=== PATIENT | male | born 1950 | race Caucasian/White ===

== ENCOUNTER 2017-06-13 08:00 | Outpatient (CLI) | payer MEDICARE, OTHER | END 2017-06-13 23:59 | disposition home or self-care (01) | LOC: LAB.R 08:00 | PROVIDERS: ATTEND Surgery | DX: R19.5 Other fecal abnormalities (principal) | CPT/HCPCS: 82270 ==

== ENCOUNTER 2017-06-28 06:52 | Day surgery (SDC) | payer MEDICARE, OTHER ==
[2017-06-28] MEDS ORDERED: LACTATED RINGERS 1,000 ML IV ONE ×2 (07:27)
[2017-06-28] MEDS ORDERED: PROPOFOL 200 MG/20 ML VIAL IVP ONE (08:40)
[2017-06-28] MEDS ORDERED: GLYCOPYRROLATE 1 MG/5 ML VIAL IVP ONE (08:40)
[2017-06-28] MEDS ORDERED: SODIUM CHLORIDE 0.9% 10 ML VIAL IV ONE (08:40)
[2017-06-28] MEDS ORDERED: MIDAZOLAM 2 MG/2 ML VIAL IVP ONE (08:40)
[2017-06-28] MEDS ORDERED: KETAMINE 500 MG/10 ML VIAL IVP ONE (08:40)
[2017-06-28 09:31] VITALS: BP 99/78
== END 2017-06-28 06:53 | disposition home or self-care (01) ==
LOC: SDS 06:52
PROVIDERS: ATTEND Surgery
PROC: 0DBE8ZX Excision of Large Intestine, Via Natural or Artificial Opening Endoscopic, Diagnostic (ICD-10-PCS; principal; 2017-06-28 08:15)
DX: D12.2 Benign neoplasm of ascending colon (principal); D12.3 Benign neoplasm of transverse colon; K62.1 Rectal polyp; E11.9 Type 2 diabetes mellitus without complications; G47.30 Sleep apnea, unspecified
CPT/HCPCS: 45384; J7120

== ENCOUNTER 2018-11-11 08:00 | Outpatient (CLI) | payer MEDICARE, OTHER ==
[2018-11-11 12:32] LABS: ALBUMIN 4.3 g/dL (3.2-5.5); ALBUMIN/GLOBULIN RATIO 1.3 (1.0-2.2); ALKALINE PHOSPHATASE 47 IU/L (42-121); ALT ALANINE AMINOTRANSFERASE 20 IU/L (10-60); AST ASPARTATE AMINOTRANSFERASE 26 IU/L (10-42); BILIRUBIN,TOTAL 1.3 mg/dL (0.2-1.0); BUN - BLOOD UREA NITROGEN 20 mg/dL (6-20); CALCIUM 9.5 mg/dL (8.5-10.3); CARBON DIOXIDE - CO2 26 mmol/L (21-32); CHLORIDE 101 mmol/L (101-111); CHOLESTEROL 176 mg/dL; GFR - MDRD 74 (>89); GLUCOSE 136 mg/dL (70-100); HDL CHOLESTEROL 53 mg/dL; SODIUM 137 mmol/L (135-145); TOTAL PROTEIN 7.5 g/dL (6.7-8.2)
[2018-11-11 12:33] LABS: CHOL/HDL RATIO 3.3 (<5.0)
[2018-11-11 12:40] LABS: BASOPHILS # (AUTO) 0.1 10^3/uL (0.0-0.1); BASOPHILS % (AUTO) 0.9 %; EOSINOPHILS # (AUTO) 0.5 10^3/uL (0.0-0.7); EOSINOPHILS % (AUTO) 9.2 %; LYMPHOCYTES # (AUTO) 1.1 10^3/uL (1.5-3.5); LYMPHOCYTES % (AUTO) 18.6 %; MEAN CORPUSCULAR HEMOGLOBIN 29.4 pg (27.0-31.0); MEAN CORPUSCULAR HGB CONC 33.1 g/dL (32.0-36.0); MEAN CORPUSCULAR VOLUME 88.9 fL (80.0-94.0); MEAN PLATELET VOLUME 8.2 fL (7.4-11.4); MONOCYTES # (AUTO) 0.5 10^3/uL (0.0-1.0); MONOCYTES % (AUTO) 8.1 %; NEUTROPHILS # (AUTO) 3.7 10^3/uL (1.5-6.6); NEUTROPHILS % (AUTO) 63.2 %; PLT - PLATELET COUNT 208 10^3/uL (130-450); RED BLOOD COUNT 5.43 10^6/uL (4.70-6.10); RED CELL DISTRIBUTION WIDTH 14.3 % (12.0-15.0); WHITE BLOOD COUNT 5.8 x10^3/uL (4.8-10.8)
[2018-11-11 12:49] LABS: HB2 TOTAL 17.8 g/dL; HEMOGLOBIN A1C 0.88 g/dL; HEMOGLOBIN A1C % 6.7 % (4.6-6.2)
[2018-11-11 12:56] LABS: LDL CHOLESTEROL,DIRECT 117 mg/dL; LDLD/HDL RATIO 2.2 (<3.6)
== END 2018-11-11 08:01 | disposition home or self-care (01) ==
LOC: LAB.WCP 08:00
PROVIDERS: ATTEND Family Medicine
DX: E11.9 Type 2 diabetes mellitus without complications (principal); I10 Essential (primary) hypertension; N40.0 Benign prostatic hyperplasia without lower urinary tract symptoms; N52.9 Male erectile dysfunction, unspecified
CPT/HCPCS: 36415; 80053; 80061; 82043; 83036; 83721; 84443; 85025

== ENCOUNTER 2018-11-17 11:02 | Outpatient (CLI) | payer MEDICARE, OTHER | END 2018-11-17 11:03 | disposition home or self-care (01) | LOC: LAB.WCP 11:02 | PROVIDERS: ATTEND Family Medicine | DX: Z12.5 Encounter for screening for malignant neoplasm of prostate (principal) | CPT/HCPCS: 36415; G0103; 84153 ==

== ENCOUNTER 2019-04-14 10:16 | Outpatient (CLI) | payer MEDICARE, OTHER ==
[2019-04-14 11:20] VITALS: BP 147/88
--- NOTE | 2019-04-14 11:20 | SLEEP CARE CONSULTATION ---
Information from patient questionnaire entered by Radha Hernandez. I have reviewed and concur with the information entered by Radha Hernandez. This document represents the service I personally performed and the decisions made by me, Fareed Murray MD, [facility]. History of Present Illness Reason for Visit: New patient Duration of Symptoms: 30 years Usual bedtime: 2100 Time it takes to fall asleep: 20 minutes Snores at night: No (not when using CPAP) Observed to quit breathing while asleep: Yes Sleeps alone due to snoring: No Toss, Turn, or Twitch while sleeping: Yes Recalls having dreams: Yes Usually gets out of bed at: [id number] Ever fallen asleep while driving: No Takes day naps: Yes Dreams during day naps: No Prior sleep studies: Yes (20 years ago) Additional HPI information: I had the pleasure of seeing Mr. Baig today regarding obstructive sleep apnea-hypopnea. As you know, he is a 69 year old gentleman who was diagnosed with the sleep-disordered breathing in [place] about 20 years ago. The report is not available. He is on his third machine and it set at 10 cmH2O. The device is a ResMed S9 AutoSet. He uses every night and all night. The compliance data show usage in 180 out of the past 180 nights, averaging 8 hours a night. The residual AHI is 6.9 and average air leak is 9.2 L/minute. He wears a nasal mask. He got his supplies from [employer]. He has not received any supplies the past few years. He finds the treatment very beneficial. Subjective Initial [place] Sleepiness Scale score: 8 Past Medical History Past Medical History: reports: Diabetes, Other (hyperthyroidism myopathy) Social History The patient's occupation is retired. Patient is and lives in [place]. Have you smoked in the past 12 months: No Alcohol use: No Caffeine use: Yes Caffeine amount and frequency: coca cola Family History Family history of sleep disordered breathing: Yes Family Hx Sleep Apnea: Sibling: Snoring Allergies and Home Medications Drug allergies reviewed: Yes Home medication list reviewed: Yes Review of Systems Cardiovascular: denies: high blood pressure, palpitations, chest pain, irregular heart rate or pulse, leg or foot swelling, have to sleep sitting up, other Respiratory: reports: shortness of breath Gastrointestinal: denies: heartburn, difficulty swallowing, nausea, vomitting, diarrhea, abdominal pain, other Urinary: reports: frequency Neurological: denies: headaches, seizure, head trauma, disorientation, speech dysfunction, gait or balance problems, fainting or unconsciousness, other Psychiatric: denies: Attention Deficit Hyperactivity, anxiety, depression, mood disorder, claustrophobia, other Ear/Nose/Throat: denies: nasal congestion, sinus problems, nose bleeds, dry mouth/throat, hoarseness, injury to nose, tonsillectomy, wisdom teeth removed, other Endocrine: reports: thyroid disease Musculoskeletal: denies: joint pain, neck pain, back pain, joint swelling, muscle pain or cramping, mobility problems, other Immunologic: denies: sneezing, rash, itching, allergies to food or environment, other Physical Exam Vital signs obtained and entered by: Dr. Murray Blood Pressure: 147/88 Heart Rate: 81 O2 Saturation: 97 Height: 5 ft 6 in Weight: 230 lb Body Mass Index: 37.1 BMI Classification: Obesity Class 2 Neck circumference: 18 Mood/affect: normal HEENT: No craniofacial malformation Nostrils: patent to airflow Turbinates: normal Septum: midline Mouth and throat: narrow oropharynx Soft palate: long Hard palate: normal Uvula: normal Uvula visualization: 50% Mallampati Class II Tongue: normal in size Tonsils: absent bilaterally Chin and jaw: normal size and position Neck: normal w/o lymphadenopathy or thyromegaly Heart: regular rate and rhythm Lungs: clear bilaterally Abdomen: soft Extremities: no edema or clubbing Neurologic: intact Impression and Plan IMPRESSION: 1. Obstructive Sleep Apnea-Hypopnea Syndrome, of unknown severity, as previously diagnosed. The patient has had good treatment compliance. The current pressure setting appears slightly ineffective but comfortable. The patient experiences improvement on the treatment. Narrow oropharynx and obesity are common predisposing factors for obstructive sleep apnea-hypopnea syndrome. Pathophysiology of sleep-disordered breathing was discussed. Because the CPAP is now older than the useful life of 5 years, I will order the patient a new one. However, in order for Medicare to cover the treatment, we will need to document the sleep-disordered breathing by repeating the in-laboratory polysomnography. A manual CPAP/BiPAP titration study will also be performed to find a more effective pressure setting. Plan: 1. Schedule polysomnography + manual CPAP titration study. 2. Attempt to lose weight. 3. Return for follow up after the sleep studies. I will order him all new equipment at that time. I spent 100% of this 20-minute visit face to face with the patient with greater than 50% of this was spent time counseling the patient and coordination of care.
== END 2019-04-14 10:17 | disposition home or self-care (01) ==
LOC: SC 10:16
PROVIDERS: ATTEND Internal Medicine Pulmonary Disease
DX: G47.33 Obstructive sleep apnea (adult) (pediatric) (principal); E66.9 Obesity, unspecified; Z68.37 Body mass index [BMI] 37.0-37.9, adult
CPT/HCPCS: 99203; G0463; 99212

== ENCOUNTER 2019-04-17 07:45 | Outpatient (CLI) | payer MEDICARE, OTHER ==
[2019-04-17 11:55] LABS: BASOPHILS % (AUTO) 0.4 %; EOSINOPHILS # (AUTO) 0.2 10^3/uL (0.0-0.7); EOSINOPHILS % (AUTO) 1.9 %; HGB - HEMOGLOBIN 16.1 g/dL (14.0-18.0); LYMPHOCYTES # (AUTO) 1.1 10^3/uL (1.5-3.5); LYMPHOCYTES % (AUTO) 14.5 %; MEAN CORPUSCULAR HGB CONC 32.5 g/dL (32.0-36.0); MEAN CORPUSCULAR VOLUME 89.2 fL (80.0-94.0); MEAN PLATELET VOLUME 10.2 fL (7.4-11.4); MONOCYTES # (AUTO) 0.5 10^3/uL (0.0-1.0); MONOCYTES % (AUTO) 6.5 %; NEUTROPHILS % (AUTO) 76.3 %; PLT - PLATELET COUNT 240 10^3/uL (130-450); RED BLOOD COUNT 5.56 10^6/uL (4.70-6.10); RED CELL DISTRIBUTION WIDTH 13.5 % (12.0-15.0); WHITE BLOOD COUNT 7.9 x10^3/uL (4.8-10.8)
[2019-04-17 12:02] LABS: ALBUMIN 4.5 g/dL (3.2-5.5); ALBUMIN/GLOBULIN RATIO 1.3 (1.0-2.2); BILIRUBIN,TOTAL 1.3 mg/dL (0.2-1.0); CALCIUM 9.8 mg/dL (8.5-10.3); CREATININE 1.2 mg/dL (0.6-1.2); TOTAL PROTEIN 7.9 g/dL (6.7-8.2)
== END 2019-04-17 23:59 | disposition home or self-care (01) ==
LOC: LAB.WCP 07:45
PROVIDERS: ATTEND Family Medicine
DX: R41.82 Altered mental status, unspecified (principal)
CPT/HCPCS: 36415; 80053; 82607; 83921; 84443; 85025

== ENCOUNTER 2019-05-03 19:23 | Outpatient (CLI) | payer MEDICARE, OTHER | END 2019-05-03 19:24 | disposition home or self-care (01) | LOC: SC 19:23 | PROVIDERS: ATTEND Internal Medicine Pulmonary Disease | DX: G47.33 Obstructive sleep apnea (adult) (pediatric) (principal); G47.61 Periodic limb movement disorder | CPT/HCPCS: 95810 ==

== ENCOUNTER 2019-05-27 14:36 | Outpatient (CLI) | payer MEDICARE, OTHER ==
[2019-05-27 15:46] VITALS: BP 132/68
--- NOTE | 2019-05-27 15:46 | SLEEP CARE CONSULTATION ---
Information from patient questionnaire entered by Acacia Elam. I have reviewed and concur with the information entered by Acacia Elam. This document represents the service I personally performed and the decisions made by me, Reyna Macario RN, MSN, HYDROELECTRIC POWERPLANT SUPERVISOR. History of Present Illness Initial [place] Sleepiness Scale score: 8 Current [place] Sleepiness Scale score: 4 Additional HPI information: PETER FRIEDMAN returns for follow up of the recently performed polysomnography and informed of findings . I explained the pathophysiology behind obstructive sleep apnea. We then spent quite a bit of time discussing different treatment options. For mild obstru ctive sleep apnea, surgery and oral appliance are alternatives to nasal CPAP therapy but in moderate or severe cases, nasal CPAP is the most effective and reliable treatment. I reviewed the impact of weight changes on sleep apnea and strongly recommended losing weight as his BMI is 35.6, class 2 obesity. After some discussion, the patient opted to continue with the nasal CPAP therapy. Nasal autoCPAP set at [id number] will be ordered with rationale explained as his current pressure of [id number] has elevated residual AHI of 6.9 at last compliance reading on his consultation. I explained how CPAP machine works with sample devices Respir[employer] Dreamstation and ResAuramist [id number] and what to expect when using the machine. Using CPAP every night in order to get used to it was emphasized. Patient advised to put CPAP mask on before getting into bed so as not to fall asleep without CPAP. The patient was instructed to call the CPAP supplier to discuss any mechanical problem that may occur. If the mask given is uncomfortable or is difficult to keep on through the night even with adjustment, contact the CPAP supplier as many will replace with another mask style if notified before 30 days. If snoring or perceives is not getting enough air or too much air from the machine, notify this office. He would like to measure and will call with choice of CPAP. He likes the Dreamstation ramp feature only if needed aspect but likes the hose placement on the Res Med device. Patient counseled not drink alcohol less than 4 hours before bedtime as it can increase snoring and apnea. Patient does not drink alcohol. Patient was cautioned about risks of drowsy driving until sleepiness symptoms resolve. Patient denies drowsy driving. Sleep Study - Polysomnography Polysomnography findings: The quality of the study is good. The patient had normal sleep efficiency. The sleep architecture was abnormal for sleep fragmentation and reduced amount of time spent in REM and slow wave sleep (N3).. Respiratory monitoring showed moderate obstructive sleep apnea-hypopnea (AHI = 16.4) associated with frequent arousals, oxyhemoglobin desaturation and mild hypoxia (timi oxygen saturation of 83%). The respiratory events occurred slightly more frequently during supine sleep (supine AHI = 23.6; non- supine = 15.04). Snore was moderate in intensity. There was moderate periodic leg movement of sleep contributing to the sleep fragmentation. Cardiac rhythm was normal sinus rhythm without significant arrhythmia. No abnormal behavior (parasomnia) observed during the night. Allergies and Home Medications Known drug allergies: Yes (codiene) Home medication list reviewed: Yes (no changes) Allergy and home medication list: metformin 500mg levothyroxine 125mcg tamsulosin 0.4mg Review of Systems Review of systems same as previous: Yes Physical Exam Blood Pressure: 132/68 Cuff size: long Heart Rate: 88 O2 Saturation: 96 Height: 5 ft 6.5 in Weight: 224 lb Body Mass Index: 35.6 BMI Classification: Obesity Class 2 Impression and Plan 1. Obstructive Sleep Apnea-Hypopnea Syndrome, moderatea, with lowest oxygen saturation of 83%. As noted above, the patient has been using CPAP for the past 20 years but no sleep study available to continue getting equipment and so was completed for insurance coverage. His CPAP is over 5 years old and of reasonable use and so will be updated. Positive pressure therapy could benefit his diabetes. I will update his CPAP and adjust pressure to [id number] to reduce elevated residual AHI noted on last compliance. Compliance guidelines also reviewed. A copy of compliance guidelines will be given for reference at check out. Because the apnea is more severe supine, I instructed to avoid sleeping supine using pillow positioning if unable to use CPAP. 2. Periodic limb movement, moderate, that did fragment patients sleep. However, it does not bother him or his spouse at home except if he has been doing extra exercise such as ladder work about once a month. Periodic limb movement of sleep (PLMS) is characterized by episodes of repetitive limb movements that occur during sleep and usually involve the lower limbs. The etiology is unknown but can be associated with restless leg syndrome (RLS), neuropathy, spinal cord diseases, kidney disease, rheumatological d isorders, narcolepsy, obstructive sleep apnea, and REM sleep behavior disorder. Other factors that can increase PLMS and/or RLS are heredity and iron deficiency as reflected by a low serum ferritin level below 50 to 75mcg / L. Several medications can precipitate or aggravate PLMS such as selective serotonin re- uptake inhibitor antidepressants, tricyclic antidepressants, lithium, and dopamine receptor antagonists with the exception of bupropion. Caffeine can also aggravate PLMS and should be avoided. Sleep hygiene methods can also improve sleep as well as lifestyle changes such as regular exercise. Patient was advised that no treatment is needed at this time. If symptoms increase, then further evaluation is indicated. * Update CPAP and set at auto CPAP therapy, pressure at 11-14 cm H2O. * Attempt to lose weight. * Avoid alcohol consumption near bedtime. * Avoid supine sleep if unable to use CPAP. * Return 6 weeks after CPAP obtained. I will assess response to therapy and compliance at that time. Addendum; patient later called and would like to try the Resmed CPAP. I spent 100% of this 35 minute visit face to face with the patient with greater than 50% of this was spent time counseling the patient and coordination of care.
== END 2019-05-27 14:37 | disposition home or self-care (01) ==
LOC: SC 14:36
PROVIDERS: ATTEND Nurse Practitioner Family
DX: G47.33 Obstructive sleep apnea (adult) (pediatric) (principal); G47.61 Periodic limb movement disorder; E66.9 Obesity, unspecified; Z68.35 Body mass index [BMI] 35.0-35.9, adult
CPT/HCPCS: 99214; G0463; 99212

== ENCOUNTER 2019-05-29 10:00 | Outpatient (CLI) | payer MEDICARE, OTHER ==
[2019-05-29 12:50] LABS: BASOPHILS # (AUTO) 0.1 10^3/uL (0.0-0.1); BASOPHILS % (AUTO) 0.3 %; EOSINOPHILS % (AUTO) 0.3 %; HGB - HEMOGLOBIN 14.5 g/dL (14.0-18.0); LYMPHOCYTES # (AUTO) 0.5 10^3/uL (1.5-3.5); LYMPHOCYTES % (AUTO) 3.8 %; MEAN CORPUSCULAR HEMOGLOBIN 29.4 pg (27.0-31.0); MEAN CORPUSCULAR HGB CONC 32.6 g/dL (32.0-36.0); MEAN CORPUSCULAR VOLUME 90.1 fL (80.0-94.0); MEAN PLATELET VOLUME 10.6 fL (7.4-11.4); MONOCYTES # (AUTO) 1.7 10^3/uL (0.0-1.0); MONOCYTES % (AUTO) 11.6 %; NEUTROPHILS # (AUTO) 11.9 10^3/uL (1.5-6.6); NEUTROPHILS % (AUTO) 82.7 %; PLT - PLATELET COUNT 190 10^3/uL (130-450); RED BLOOD COUNT 4.94 10^6/uL (4.70-6.10); RED CELL DISTRIBUTION WIDTH 13.4 % (12.0-15.0); WHITE BLOOD COUNT 14.4 x10^3/uL (4.8-10.8)
[2019-05-29 13:14] LABS: PLATELET ESTIMATE, MANUAL NORMAL (130-450,000) (NORMAL); PLATELET MORPHOLOGY NORMAL APPEARANCE (NORMAL); RBC MORPHOLOGY (MULTIPLE) NORMAL APPEARANCE (NORMAL)
[2019-05-29 13:21] LABS: ALBUMIN 3.4 g/dL (3.2-5.5); ALBUMIN/GLOBULIN RATIO 0.9 (1.0-2.2); BILIRUBIN,TOTAL 1.1 mg/dL (0.2-1.0); CALCIUM 8.7 mg/dL (8.5-10.3); CREATININE 1.3 mg/dL (0.6-1.2); TOTAL PROTEIN 7.3 g/dL (6.7-8.2)
[2019-05-29 14:02] LABS: HB2 TOTAL 14.7 g/dL; HEMOGLOBIN A1C 0.71 g/dL; HEMOGLOBIN A1C % 6.6 % (4.6-6.2)
== END 2019-05-29 23:59 | disposition home or self-care (01) ==
LOC: LAB.WCP 10:00
PROVIDERS: ATTEND Family Medicine
DX: I10 Essential (primary) hypertension (principal); R68.83 Chills (without fever); E11.9 Type 2 diabetes mellitus without complications; N40.0 Benign prostatic hyperplasia without lower urinary tract symptoms
CPT/HCPCS: 36415; 80053; 83036; 85025; 87077; 87086; 87181

== ENCOUNTER 2019-08-13 08:14 | Outpatient (CLI) | payer MEDICARE, OTHER ==
[2019-08-13 09:03] VITALS: BP 130/80
--- NOTE | 2019-08-13 09:03 | SLEEP CARE CONSULTATION ---
Information from patient questionnaire entered by Acacia Elam. I have reviewed and concur with the information entered by Acacia Elam. This document represents the service I personally performed and the decisions made by me, Reyna Macario, RN, MSN, SENIOR ELECTRONICS ENGINEER. History of Present Illness Previous diagnosis: Moderate, Obstructive Sleep Apnea-Hypopnea Syndrome AHI: 16.4 Reason for follow up: first compliance after device update Equipment type: CPAP Equipment obtained from: [place] Mask style: Nasal (Wisp) Mask brand: Respironics Backup mask available: Yes (old) Last cushion change: 1 month ago HPI additional information: Since updating his CPAP and the increase in CPAP pressure he is sleeping better and more energy during the day. CPAP Compliance Data - Data Reviewed with Patient Average duration of nightly device use: 8.5 Compliance rate %: 100 Current pressure setting (cmH2O): 11-14 Humidity settin Average residual AHI: 4.3 Subjective Patient concerns: denies: aerophagia, mask discomfort, air blowing in eyes, mask leak noise, condensation in mask/hose, nasal congestion, dry mouth, nose, throat, epistaxis Observed to snore while using device: No Current pressure setting perceived as: comfortable On therapy, patient: reports: sleeping better, awakening more refreshed, being more awake and alert during the day, more rested overall. denies: drowsiness while driving Initial [place] Sleepiness Scale score: 8 Current [place] Sleepiness Scale score: 2 Allergies and Home Medications Known drug allergies: Yes (codiene ) Home medication list reviewed: Yes (no changes ) Review of Systems Review of systems same as previous: Yes Physical Exam Blood Pressure: 130/80 Cuff size: long Heart Rate: 69 O2 Saturation: 98 Height: 5 ft 6.5 in Weight: 219 lb Weight change since last visit: lost 5 pounds Body Mass Index: 34.8 BMI Classification: Obesity Class 1 Impression and Plan 1. Obstructive Sleep Apnea-Hypopnea Syndrome, moderate, with good treatment compliance and good apnea control. On CPAP therapy, the patient has better sleep quality and is more rested overall that has improved with new device and pressure. To reduce mask leaks, I discussed proper placement of mask with sample mask. I also advised slightly tightening mask. In addition he is advised to increase frequency of changing his mask cushion to at least monthly and may be twice a month depending on seal as noted on his device. I showed him how to check his mask fit on sample device. I also showed him a CPAP pillow but he states he already sleeps on the side of his pillow. I also showed him how his large mask leaks contribute to a higher residual AHI on his compliance report. Patient has lost weight. Currently patients BMI is 35.6 obesity class. Obesity increases the risk of apnea, CPAP pressure requirements and overall health risks especially cardiovascular and diabetes. Thus patient is advised to lose weight. Weight loss can be done with reducing portion size, refined foods and balancing content with vegetables, fruit and protein. A diet consultation can be helpful in achieving optimal weight loss goals. The BMI chart was reviewed. The patient would like to reduce to 30 pounds bringing their BMI down to 31. Patient encouraged to discuss their weight loss goals with their PCP and consider a referral to a geophysical prospector. He is also increasing his exercise recently with his spouse that should also reduce his weight. Both his weight loss and exercise increase could also benefit his diabetes. The patient's current CPAP pressure should accommodate for some future weight loss. Symptoms to report for additional pressure adjustment discussed. Patient's apnea severity and rationale for treatment to reduce apnea, improve sleep quality and reduce cardiovascular and cerebrovascular events was reviewed. I also reviewed the benefit of consistent device use of CPAP for diabetes. * Continue CPAP pressure at [id number] * Notify me if snoring with mask or feeling that the pressure is too much or too little * Continue to lose weight * consider diet consultation * Change mask cushions more frequently. * Call this office if any problems using CPAP * Return for follow up in 1 year , or sooner if concerns arise Time Spent with Patient (minutes): 30 I spent 100% of this visit face to face with the patient with greater than 50% of this was spent time counseling the patient and coordination of care.
== END 2019-08-13 08:15 | disposition home or self-care (01) ==
LOC: SC 08:14
PROVIDERS: ATTEND Nurse Practitioner Family
DX: G47.33 Obstructive sleep apnea (adult) (pediatric) (principal); E66.9 Obesity, unspecified; Z68.35 Body mass index [BMI] 35.0-35.9, adult
CPT/HCPCS: 99214; G0463; 99212

== ENCOUNTER 2019-08-24 07:22 | Outpatient (CLI) | payer MEDICARE, OTHER ==
[2019-08-24 12:06] LABS: CALCIUM 9.9 mg/dL (8.5-10.3); CREATININE 1.1 mg/dL (0.6-1.2)
[2019-08-24 12:51] LABS: HB2 TOTAL 15.6 g/dL; HEMOGLOBIN A1C 0.74 g/dL; HEMOGLOBIN A1C % 6.5 % (4.6-6.2)
[2019-08-24 13:16] LABS: CREATININE,URINE 65.8 mg/dL; MICROALBUM/CREATININE RATIO,UR 7.6 ug/mg (<30.0); MICROALBUMIN,URINE 0.5 mg/dL (0-300.0)
== END 2019-08-24 23:59 | disposition home or self-care (01) ==
LOC: LAB.WCP 07:22
PROVIDERS: ATTEND Family Medicine
DX: R41.3 Other amnesia (principal); E11.9 Type 2 diabetes mellitus without complications; N41.9 Inflammatory disease of prostate, unspecified
CPT/HCPCS: 36415; 80048; 82043; 82570; 83036

== ENCOUNTER 2020-08-08 11:11 | Outpatient (CLI) | payer MEDICARE, OTHER ==
--- NOTE | 2020-08-08 13:18 | SLEEP CARE CONSULTATION ---
Information from patient questionnaire entered by Acacia Elam. I have reviewed and concur with the information entered by Acacia Elam. This document represents the service I personally performed and the decisions made by me, Fareed Murray MD, [facility]. History of Present Illness Service Date and Time: 08/08/2020 1111 Previous diagnosis: Moderate, Obstructive Sleep Apnea-Hypopnea Syndrome AHI: 16.4 (in 2019) Reason for follow up: annual (last seen 07/2019) Equipment type: CPAP Equipment obtained from: [place] Mask style: Nasal Mask brand: Respironics (Wisp) Prior sleep studies: Yes (20 years ago) Year and Where: 2019 - [facility] Type of Sleep Study: Polysomnography HPI additional information: HPI: Mr. Baig was diagnosed to have moderate obstructive sleep apnea- hypopnea syndrome and returns today for follow up of CPAP therapy. The patient purchased the device from [employer] and was fitted with a nasal mask. He uses the device nightly and all through the night. The compliance report shows that he uses the ResMed AirSense 10 autoCPAP 365 nights out of the past 365 nights, averaging 8.4 hours a night. He complains of no particular problem with the device such as soreness on the face, dry nose, epistaxis, nasal congestion or headache. He thinks that the pressure of 11 - 14 cmH2O is comfortable. On the CPAP therapy he notices improvement in his sleep quality, a nd that he wakes up feeling fresher in the morning and more awake/alert during the day. His notices no snore at all. [place] Sleepiness Scale score is 3. The average residual AHI is 5.2; and average air leak is 7.3 L/minute. The 90th percentile pressure is 13.1 cmH2O. CPAP Compliance Data - Data Reviewed with Patient Average duration of nightly device use: 8 hr 36 min Compliance rate %: 99 (180 days) Current pressure setting (cmH2O): 11-14 Humidity settin Average residual AHI: 6.1 Subjective Initial [place] Sleepiness Scale score: 8 (in 2019) Current [place] Sleepiness Scale score: 3 Allergies and Home Medications Drug allergies reviewed: Yes Home medication list reviewed: Yes Review of Systems Review of systems same as previous: Yes Physical Exam Vital signs obtained and entered by: To minimize the risk of COVID-19 exposure, detailed exam was not performed. Height: 5 ft 6.5 in Weight: 240 lb Weight change since last visit: +10 Body Mass Index: 38.1 BMI Classification: Obese Impression and Plan IMPRESSION: 1. Obstructive Sleep Apnea-Hypopnea Syndrome, moderate (AHI was 16.4 in 2019) with the patient continuing to do well on nasal CPAP therapy. He has excellent compliance and significant clinical benefits. The current pressure appears effective and comfortable. Overall, he is very satisfied with treatment and plans to continue with it long-term. Because the residual AHI is slightly elevated, I will raise the pressure setting. PLAN: 1. AutoCPAP raised to 12 - 16 cm H2O. 2. Try to lose weight 3. Return in one year for follow up or earlier if there is any problem with the treatment. Visit Type: In Office Time Spent with Patient (minutes): 20 Provider Statement: I spent 100% of the Face to Face Visit with the patient with greater than 50% spent counseling the patient and coordination of care.
== END 2020-08-08 11:12 | disposition home or self-care (01) ==
LOC: SC 11:11
PROVIDERS: ATTEND Internal Medicine Pulmonary Disease
DX: G47.33 Obstructive sleep apnea (adult) (pediatric) (principal); E66.9 Obesity, unspecified; Z68.38 Body mass index [BMI] 38.0-38.9, adult
CPT/HCPCS: 99213; G0463; 99212

== ENCOUNTER 2020-08-17 08:00 | Outpatient (CLI) | payer MEDICARE, OTHER ==
[2020-08-17 13:55] LABS: ALBUMIN 4.4 g/dL (3.2-5.5); ALBUMIN/GLOBULIN RATIO 1.5 (1.0-2.2); ALKALINE PHOSPHATASE 53 IU/L (42-121); ALT ALANINE AMINOTRANSFERASE 28 IU/L (10-60); AST ASPARTATE AMINOTRANSFERASE 27 IU/L (10-42); BILIRUBIN,TOTAL 0.9 mg/dL (0.2-1.0); BUN - BLOOD UREA NITROGEN 19 mg/dL (6-20); CALCIUM 10.1 mg/dL (8.5-10.3); CARBON DIOXIDE - CO2 27 mmol/L (21-32); CHLORIDE 101 mmol/L (101-111); CHOL/HDL RATIO 4.2 (<5.0); CHOLESTEROL 216 mg/dL; CREATININE 1.2 mg/dL (0.6-1.2); GLUCOSE 187 mg/dL (70-100); HDL CHOLESTEROL 52 mg/dL; LDL CHOLESTEROL,CALCULATED 141 mg/dL; LDL/HDL RATIO 2.7 (<3.6); TOTAL PROTEIN 7.3 g/dL (6.7-8.2); VLDL CHOLESTEROL 23 mg/dL
[2020-08-17 14:05] LABS: BASOPHILS % (AUTO) 0.4 %; EOSINOPHILS # (AUTO) 0.1 10^3/uL (0.0-0.7); EOSINOPHILS % (AUTO) 1.5 %; HGB - HEMOGLOBIN 16.3 g/dL (14.0-18.0); LYMPHOCYTES # (AUTO) 1.2 10^3/uL (1.5-3.5); LYMPHOCYTES % (AUTO) 12.9 %; MEAN CORPUSCULAR HGB CONC 32.7 g/dL (32.0-36.0); MEAN CORPUSCULAR VOLUME 91.7 fL (80.0-94.0); MEAN PLATELET VOLUME 10.3 fL (7.4-11.4); MONOCYTES # (AUTO) 0.7 10^3/uL (0.0-1.0); NEUTROPHILS # (AUTO) 7.3 10^3/uL (1.5-6.6); NEUTROPHILS % (AUTO) 77.6 %; PLT - PLATELET COUNT 238 10^3/uL (130-450); RED BLOOD COUNT 5.44 10^6/uL (4.70-6.10); RED CELL DISTRIBUTION WIDTH 13.2 % (12.0-15.0); WHITE BLOOD COUNT 9.5 x10^3/uL (4.8-10.8)
[2020-08-17 20:38] LABS: HEMOGLOBIN A1c% 8.6 % (4.27-6.07)
== END 2020-08-17 23:59 ==
LOC: LAB.WCP 08:00
PROVIDERS: ATTEND Family Medicine
DX: E11.9 Type 2 diabetes mellitus without complications (principal); I10 Essential (primary) hypertension; E78.9 Disorder of lipoprotein metabolism, unspecified
CPT/HCPCS: 36415; 80053; 80061; 83036; 83721; 84443; 85025

== ENCOUNTER 2021-02-15 08:05 | Outpatient (CLI) | payer MEDICARE, OTHER ==
[2021-02-15 12:34] LABS: MICROALBUM/CREATININE RATIO,UR 18.1 ug/mg (<30.0)
[2021-02-15 13:26] LABS: BUN - BLOOD UREA NITROGEN 21 mg/dL (6-20); CALCIUM 9.9 mg/dL (8.5-10.3); CARBON DIOXIDE - CO2 26 mmol/L (21-32); CHLORIDE 103 mmol/L (101-111); CHOL/HDL RATIO 2.9 (<5.0); CHOLESTEROL 165 mg/dL; CREATININE 1.2 mg/dL (0.6-1.2); GFR - MDRD 60 (>89); GLUCOSE 128 mg/dL (70-100); HDL CHOLESTEROL 56 mg/dL; LDL CHOLESTEROL,CALCULATED 96 mg/dL; LDL/HDL RATIO 1.7 (<3.6); POTASSIUM 4.9 mmol/L (3.5-5.0); SODIUM 138 mmol/L (135-145); TRIGLYCERIDES 67 mg/dL; VLDL CHOLESTEROL 13 mg/dL
[2021-02-15 14:02] LABS: ESTIMATED AVERAGE GLUCOSE 177 mg/dL (70-100); HEMOGLOBIN A1c% 7.8 % (4.27-6.07)
== END 2021-02-15 23:59 | disposition home or self-care (01) ==
LOC: LAB.WCP 08:05
PROVIDERS: ATTEND Internal Medicine
DX: E11.9 Type 2 diabetes mellitus without complications (principal); N40.1 Benign prostatic hyperplasia with lower urinary tract symptoms
CPT/HCPCS: 36415; 80048; 80061; 82043; 82570; 83036; 83721; 84153

== ENCOUNTER 2021-03-12 12:33 | Emergency (ER) | payer MEDICARE, OTHER ==
[2021-03-12 12:39] VITALS: BP 170/87
[2021-03-12] MEDS ORDERED: BUFFERED LIDOCAINE 10 ML SYRINGE SUBQ STA (12:43)
--- NOTE | 2021-03-12 12:43 | ED Physician Documentation ---
PD HPI HEAD INJURY - Stated complaint Stated Complaint: CHIN LAC - Chief complaint Chief Complaint: Laceration - History obtained from History obtained from: Patient - Additional information Additional information: 70-year-old gentleman who is up-to-date on tetanus was using a grinding wheel at home and it broke and lacerated his face. He has a laceration on the chin and the right cheek. No other injuries. No visual problem or eye pain. Review of Systems Constitutional: reports: Reviewed and negative Eyes: reports: Reviewed and negative Ears: reports: Reviewed and negative PD PAST MEDICAL HISTORY - Past Medical History Cardiovascular: Hypertension, High cholesterol Respiratory: Sleep apnea, CPAP use Endocrine/Autoimmune: Type 2 diabetes, HyPOthyroidism GI: None : None Psych: Claustrophobia Musculoskeletal: None Derm: Rosacea - Past Surgical History Past Surgical History: Yes General: Appendectomy Ortho: Spine surgery HEENT: Detached retina repair - Present Medications Home Medications: Ambulatory Orders Medication Instructions Recorded Confirmed Levothyroxine Sodium [Synthroid] 125 mcg PO DAILY 01/17/13 06/28/17 Metformin HCl [Metformin HCl ER] 500 mg PO QDBREAKFAST 08/08/16 06/28/17 Tadalafil [Cialis] 20 mg PO PRN PRN 08/08/16 06/28/17 metroNIDAZOLE 0.75% GEL [Flagyl 1 gm TOP PRN PRN 06/28/17 06/28/17 Gel] Bacitracin Zinc Oint 1 applic TOP BID #1 gm 03/12/21 - Allergies Allergies/Adverse Reactions: Allergies Allergy/AdvReac Type Severity Reaction Status Date / Time codeine AdvReac Severe confused Verified 03/12/21 12:36 - Social History Does the pt smoke?: No Smoking Status: Never smoker Does the pt drink ETOH?: No Does the pt have substance abuse?: No - Immunizations Immunizations are current?: No - POLST POLST Status: Full Code PD ED PE NORMAL - Vitals Vital signs reviewed: Yes - General General: Alert and oriented X 3, No acute distress - Neuro Neuro: Alert and oriented X 3, Normal speech PD ED PE EXPANDED - HEENT HEENT Visual: 1 - laceration (1.2cm shallow lac) 2 - laceration (3cm deeper lac) Results - Vitals Vitals: Vital Signs - 24 hr 03/12/21 12:36 Temperature 36.5 C Heart Rate 75 Respiratory 16 Rate Blood Pressure 170/87 H O2 Saturation 96 Oxygen O2 Source Room air Procedures - Laceration (location) R cheek Length in cm: 1.2 Wound type: Linear, Superficial Wound preparation: Irrigated copiously NS Skin layer closure: Dermabond Other: Tetanus UTD Chin Length in cm: 3 Wound type: Into subcut fat Anesthesia: Lidocaine 1%, With bicarb Wound preparation: Irrigated copiously NS Skin layer closure: Nylon, Interrupted, Size #-0 - enter number (5-0), Sutures - enter # (8) Other: Tetanus UTD Departure - Departure Disposition: 01 Home, Self Care Clinical Impression: Laceration of multiple sites of face Condition: Good Record reviewed to determine appropriate education?: Yes Instructions: ED Laceration Facial Skin Glue, ED Laceration Facial Sutr Tape Prescriptions: Bacitracin Zinc Oint 1 applic TOP BID #1 gm Comments: For the wound on your cheek which has the glue on it, no special care is needed. You can wash with soap and water and otherwise ignore it. For the wound on the chin with sutures in it. Keep it covered with bacitracin ointment which I am prescribing. Sutures need to come out in about 7 days. You can go to the walk- in clinic on [facility] or see your doctor in 8 days or return to the emergency department.
[2021-03-12] MEDS ORDERED: BACITRACIN ZINC OINT 1 PACKET TOP STA (13:11)
== END 2021-03-12 13:15 | disposition home or self-care (01) ==
LOC: ED 12:33
DX: S01.411A Laceration without foreign body of right cheek and temporomandibular area, initial encounter (principal); S01.81XA Laceration without foreign body of other part of head, initial encounter; W29.8XXA Contact with other powered hand tools and household machinery, initial encounter; Y92.009 Unspecified place in unspecified non-institutional (private) residence as the place of occurrence of the external cause; E11.9 Type 2 diabetes mellitus without complications; Z79.84 Long term (current) use of oral hypoglycemic drugs; I10 Essential (primary) hypertension
CPT/HCPCS: 12013; 99283

== ENCOUNTER 2021-04-13 08:00 | Outpatient (CLI) | payer MEDICARE, OTHER | END 2021-04-13 23:59 | disposition home or self-care (01) | LOC: LAB.N 08:00 | PROVIDERS: ATTEND Family Medicine | DX: R31.0 Gross hematuria (principal) | CPT/HCPCS: 36415; 84153; 87086 ==

== ENCOUNTER 2021-07-17 09:01 | Outpatient (CLI) | payer MEDICARE, OTHER ==
--- NOTE | 2021-07-17 09:43 | SLEEP CARE CONSULTATION ---
Information from patient questionnaire entered by Hillary Rivera MA. I have reviewed and concur with the information entered by Hillary Rivera MA. This document represents the service I personally performed and the decisions made by me, Fareed Murray MD, [facility]. History of Present Illness Service Date and Time: 07/17/2021 0901 Previous diagnosis: Moderate, Obstructive Sleep Apnea-Hypopnea Syndrome AHI: 16.4 (in 2019) Reason for follow up: annual Equipment type: CPAP Equipment obtained from: [employer] Mask style: Nasal Prior sleep studies: Yes (20 years ago) Year and Where: 2018 - [facility] Sleep Type of Sleep Study: Polysomnography HPI additional information: Mr. Baig was diagnosed to have moderate obstructive sleep apnea-hypopnea syndrome and returns today for his annual follow up of CPAP therapy. The patient purchased the device from [employer] and was fitted with a nasal mask. He continues to use the device nightly and all through the night. The compliance report shows that he uses the ResMed AirSense 10 autoCPAP 365 nights out of the past 365 nights, averaging 8.5 hours a night. He complains of no particular problem with the device such as soreness on the face, dry nose, epistaxis, nasal congestion or headache. He thinks that the pressure of 12 - 16 cmH2O is comfortable (raised from 11 14 cmH2O a year ago for slightly elevated residual AHI). On the CPAP therapy he notices improvement in his sleep quality, and that he wakes up feeling fresher in the morning and more awake/alert during the day. His notices no snore at all. [place] Sleepiness Scale score is 3. The av erage residual AHI is 5.8 (was 5.2), most being central apneas; and average air leak is 3.5 (was 7.3) L/minute. The 90th percentile pressure is 14.5 cmH2O. Sleep Study - Results Type of Sleep Study: Polysomnography Prior sleep studies: Yes (20 years ago) Year and Where: 2018 - [facility] Sleep Subjective Initial [place] Sleepiness Scale score: 8 (in 2019) Allergies and Home Medications Drug allergies reviewed: Yes Home medication list reviewed: Yes Review of Systems Review of systems same as previous: Yes Physical Exam Vital signs obtained and entered by: KEI REYNAGA Blood Pressure: 132/80 Cuff size: regular Heart Rate: 87 O2 Saturation: 97 Height: 5 ft 7 in Weight: 231 lb Body Mass Index: 36.1 BMI Classification: Obese Mood/affect: normal Impression and Plan IMPRESSION: 1. Obstructive Sleep Apnea-Hypopnea Syndrome, moderate (AHI was 16.4 in 2019) with the patient continuing to do well on nasal CPAP therapy. He has excellent compliance and significant clinical benefits. The current pressure appears slightly ineffective but comfortable. Overall, he is very satisfied with treatment and plans to continue with it long-term. Because the residual AHI is mostly from central apneas and the patient is complaining of his machine not turning itself off with mask removal, I will lower the pressure setting. PLAN: 1. AutoCPAP lowered to 10 - 14 cm H2O. 2. Try to lose weight 3. Return in one year for follow up or earlier if there is any problem with the treatment. Follow up with Sleep Care in: 1 year Visit Type: In Office Time Spent with Patient (minutes): 15 Provider Statement: I spent 100% of the Face to Face Visit with the patient with greater than 50% spent counseling the patient and coordination of care.
[2021-07-17 09:44] VITALS: BP 132/80
== END 2021-07-17 09:02 | disposition home or self-care (01) ==
LOC: SC 09:01
PROVIDERS: ATTEND Internal Medicine Pulmonary Disease
DX: G47.33 Obstructive sleep apnea (adult) (pediatric) (principal); E66.9 Obesity, unspecified; Z68.36 Body mass index [BMI] 36.0-36.9, adult
CPT/HCPCS: 99212; G0463

== ENCOUNTER 2021-09-25 07:53 | Outpatient (CLI) | payer MEDICARE, OTHER ==
[2021-09-25 13:29] LABS: BASOPHILS % (AUTO) 0.7 %; EOSINOPHILS # (AUTO) 0.2 10^3/uL (0.0-0.7); EOSINOPHILS % (AUTO) 3.2 %; HCT - HEMATOCRIT 46.2 % (42.0-52.0); HGB - HEMOGLOBIN 15.1 g/dL (14.0-18.0); LYMPHOCYTES # (AUTO) 1.1 10^3/uL (1.5-3.5); LYMPHOCYTES % (AUTO) 18.5 %; MEAN CORPUSCULAR HEMOGLOBIN 29.5 pg (27.0-31.0); MEAN CORPUSCULAR HGB CONC 32.7 g/dL (32.0-36.0); MEAN CORPUSCULAR VOLUME 90.2 fL (80.0-94.0); MEAN PLATELET VOLUME 10.2 fL (7.4-11.4); MONOCYTES # (AUTO) 0.5 10^3/uL (0.0-1.0); MONOCYTES % (AUTO) 8.5 %; NEUTROPHILS % (AUTO) 68.4 %; PLT - PLATELET COUNT 288 10^3/uL (130-450); RED BLOOD COUNT 5.12 10^6/uL (4.70-6.10); RED CELL DISTRIBUTION WIDTH 13.9 % (12.0-15.0); WHITE BLOOD COUNT 5.9 x10^3/uL (4.8-10.8)
[2021-09-25 13:41] LABS: THYROID STIMULATING HORMONE 1.05 uIU/mL (0.34-5.60)
[2021-09-25 13:42] LABS: MICROALBUM/CREATININE RATIO,UR 26.8 ug/mg (<30.0)
[2021-09-25 14:28] LABS: ESTIMATED AVERAGE GLUCOSE 177 mg/dL (70-100); HEMOGLOBIN A1c% 7.8 % (4.27-6.07)
[2021-09-25 14:52] LABS: ALBUMIN 4.4 g/dL (3.2-5.5); ALBUMIN/GLOBULIN RATIO 1.4 (1.0-2.2); ALKALINE PHOSPHATASE 50 IU/L (42-121); ALT ALANINE AMINOTRANSFERASE 50 IU/L (10-60); AST ASPARTATE AMINOTRANSFERASE 55 IU/L (10-42); BILIRUBIN,TOTAL 0.9 mg/dL (0.2-1.0); BUN - BLOOD UREA NITROGEN 15 mg/dL (6-20); CHOL/HDL RATIO 3.3 (<5.0); CHOLESTEROL 154 mg/dL; GFR - MDRD 73 (>89); HDL CHOLESTEROL 46 mg/dL; LDL CHOLESTEROL,CALCULATED 98 mg/dL; LDL/HDL RATIO 2.1 (<3.6); TOTAL PROTEIN 7.5 g/dL (6.7-8.2); TRIGLYCERIDES 52 mg/dL; VLDL CHOLESTEROL 10 mg/dL
[2021-09-25 14:53] LABS: CALCIUM 9.9 mg/dL (8.5-10.3); CARBON DIOXIDE - CO2 26 mmol/L (21-32); CHLORIDE 100 mmol/L (101-111); GLUCOSE 158 mg/dL (70-100); POTASSIUM 4.7 mmol/L (3.5-5.0); SODIUM 139 mmol/L (135-145)
== END 2021-09-25 07:54 | disposition home or self-care (01) ==
LOC: LAB.N 07:53
PROVIDERS: ATTEND Internal Medicine
DX: E11.9 Type 2 diabetes mellitus without complications (principal); E03.9 Hypothyroidism, unspecified
CPT/HCPCS: 36415; 80053; 80061; 82043; 82570; 83036; 83721; 84443; 85025

== ENCOUNTER 2022-01-02 07:27 | Outpatient (CLI) | payer MEDICARE, OTHER ==
[2022-01-02 12:33] LABS: CALCIUM 9.5 mg/dL (8.5-10.3); CREATININE 1.1 mg/dL (0.6-1.2); POTASSIUM 4.9 mmol/L (3.5-5.0)
[2022-01-02 12:42] LABS: ESTIMATED AVERAGE GLUCOSE 157 mg/dL (70-100); HEMOGLOBIN A1c% 7.1 % (4.27-6.07)
== END 2022-01-02 07:28 | disposition home or self-care (01) ==
LOC: LAB.N 07:27
PROVIDERS: ATTEND Internal Medicine
DX: E11.9 Type 2 diabetes mellitus without complications (principal)
CPT/HCPCS: 36415; 80048; 83036

== ENCOUNTER 2022-08-06 13:16 | Outpatient (CLI) | payer MEDICARE, OTHER ==
[2022-08-06 18:11] VITALS: BP 168/100
--- NOTE | 2022-08-06 18:11 | SLEEP CARE CONSULTATION ---
Information from patient questionnaire entered by Melvin Godfrey. I have reviewed and concur with the information entered by Melvin Godfrey. This document represents the service I personally performed and the decisions made by me, Fareed Murray MD, [facility]. History of Present Illness Service Date and Time: 08/06/2022 1316 Previous diagnosis: Moderate, Obstructive Sleep Apnea-Hypopnea Syndrome AHI: 16.4 (in 2019) Reason for follow up: annual (LAST SEEN 07/2021) Equipment type: CPAP (RESMED) Equipment obtained from: [employer] Mask style: Nasal Prior sleep studies: Yes (20 years ago) Year and Where: 2018 - [facility] Sleep Type of Sleep Study: Polysomnography HPI additional information: Mr. Baig was diagnosed to have moderate obstructive sleep apnea-hypopnea syndrome and returns today for his annual follow up of CPAP therapy. The patient purchased the device from [employer] and was fitted with a nasal mask. He continues to use the device nightly and all through the night. The compliance report shows that he uses the ResMed AirSense 10 autoCPAP 358 nights out of the past 365 nights, averaging 8.2 hours a night. He complains of no particular problem with the device such as soreness on the face, dry nose, epistaxis, nasal congestion or headache. He does not use the humidifier. He thinks that the pressure of 12 - 16 cmH2O is comfortable (raised from 11 - 14 cmH2O last year for slightly elevated residual AHI). On the CPAP therapy he notices improvement in his sleep quality, and that he wakes up feeling fresher in the morning and more awake/alert during the day. His notices no snore at all. [place] Sleepiness Scale score is 6. The average residual AHI is 4.1 (was 5.8), most being central apneas; and average air leak is 10.1 (was 3.5) L/minute. The 90th percentile pressure is 14.5 cmH2O. Sleep Study - Results Type of Sleep Study: Polysomnography Prior sleep studies: Yes (20 years ago) Year and Where: 2018 - [facility] Sleep CPAP Compliance Data - Data Reviewed with Patient Average duration of nightly device use: 7HRS 51MIN Compliance rate %: 86 (02/04/22-08/02/22) Current pressure setting (cmH2O): 12-16 Average residual AHI: 4.4 Subjective Initial [place] Sleepiness Scale score: 8 (in 2019) Current [place] Sleepiness Scale score: 6 (08/06/22) Allergies and Home Medications Drug allergies reviewed: Yes Home medication list reviewed: Yes Allergy and home medication list: Allergies codeine Adverse Reaction (Severe, Verified 03/12/21 12:36) confused shakey, increased heart rate Review of Systems Review of systems same as previous: Yes Physical Exam Vital signs obtained and entered by: MELVIN Tobin MA Blood Pressure: 168/100 (LEFT ARM) Cuff size: regular Heart Rate: 92 O2 Saturation: 97 Height: 5 ft 7 in Weight: 203 lb Body Mass Index: 31.8 BMI Classification: Obese Impression and Plan IMPRESSION: 1. Obstructive Sleep Apnea-Hypopnea Syndrome, moderate (AHI was 16.4 in 2019) with the patient continuing to do well on nasal CPAP therapy. He has excellent compliance and significant clinical benefits. The current pressure appears ineffective and comfortable. Overall, he is very satisfied with treatment and plans to continue with it long-term. PLAN: 1. AutoCPAP left at 12 - 16 cm H2O. 2. Prescription made for supplies and sent to [facility]. 3. Try to lose weight. 4. Return in one year for follow up or earlier if there is any problem with the treatment. Counseling Topics: Weight control Follow up with Sleep Care in: 1 year Visit Type: In Office Time Spent with Patient (minutes): 15 Provider Statement: I spent 100% of the Face to Face Visit with the patient with greater than 50% spent counseling the patient and coordination of care.
== END 2022-08-06 13:17 | disposition home or self-care (01) ==
LOC: SC 13:16
PROVIDERS: ATTEND Internal Medicine Pulmonary Disease
DX: G47.33 Obstructive sleep apnea (adult) (pediatric) (principal); E66.9 Obesity, unspecified; Z68.31 Body mass index [BMI] 31.0-31.9, adult
CPT/HCPCS: 99212; G0463

== ENCOUNTER 2023-03-01 06:50 | Day surgery (SDC) | payer MEDICARE, OTHER ==
--- NOTE | 2023-03-01 06:57 | ANESTHESIA ---
Pre-Anesthesia VS, & Labs - Diagnosis hx colon polyps - Procedure colonoscopy Height: 5 ft 7 in - NPO >8 hours Last Fluid Intake: am prep - Lab Results Lab results reviewed: Yes Home Medications and Allergies Levothyroxine Sodium [Synthroid] 125 mcg PO DAILY 01/17/13 Metformin HCl [Metformin HCl ER] 500 mg PO QDBREAKFAST 08/08/16 Tadalafil [Cialis] 20 mg PO PRN PRN 08/08/16 metroNIDAZOLE 0.75% GEL [Flagyl Gel] 1 gm TOP PRN PRN 06/28/17 Allergies/Adverse Reactions: Allergies Allergy/AdvReac Type Severity Reaction Status Date / Time codeine AdvReac Severe confused Verified 03/01/23 07:08 Anes History & Medical History - Anesthetic History Anesthesia Complications: reports: No previous complications Family history of Anesthesia Complications: Denies Family history of Malignant Hyperthermia: Denies - Medical History Cardiovascular: reports: None, Hypertension Pulmonary: reports: Sleep apnea, CPAP use Gastrointestinal: reports: None Urinary: reports: None Musculoskeletal: reports: Other Endocrine/Autoimmune: reports: HyPOthyroidism, Other Skin: reports: None Smoking Status: Never smoker History of Cancer?: No - Surgical History General: reports: Appendectomy, Colonoscopy Eyes Ears Nose Throat (EENT): reports: Detached retina repair Orthopedic: reports: Spine surgery Exam General: Alert, Oriented x3, Cooperative Plan Anesthesia Type: Total IV Consent for Procedure(s) Verified and Reviewed: Yes Code Status: Attempt Resuscitation ASA classification: 2-Mild systemic disease Is this case an emergency?: No
[2023-03-01] MEDS ORDERED: LACTATED RINGERS 1,000 ML IV ONE (07:13)
[2023-03-01] MEDS ORDERED: MIDAZOLAM 2 MG/2 ML VIAL ONE (07:39)
[2023-03-01] MEDS ORDERED: PROPOFOL 500 MG/50 ML 500 MG/50 ML VIAL ONE (07:39)
[2023-03-01] MEDS ORDERED: LIDOCAINE-MPF 2% 5 ML VIAL ONE (08:11)
[2023-03-01] MEDS ORDERED: LACTATED RINGERS 600 ML IV ONE (08:32)
[2023-03-01 09:03] VITALS: BP 120/83; O2SAT 97
--- NOTE | 2023-03-01 09:13 | ANESTHESIA POST OP EVALUATION ---
Anesthesia Post Eval - Post Anesthesia Eval Vitals: Last Vital Signs Temp 36 C L 03/01/23 08:59 Pulse 61 03/01/23 08:59 Resp 16 03/01/23 08:59 BP 120/83 H 03/01/23 08:59 Pulse Ox 97 03/01/23 08:59 O2 Flow Rate CV Function Including HR & BP: Stable Pain Control: Satisfactory Nausea & Vomiting: Negative Mental Status: Baseline Respiratory Status: Airway Patent Hydration Status: Satisfactory Anesthesia Complications: None
== END 2023-03-01 06:51 | disposition home or self-care (01) ==
LOC: SDS 06:50
PROVIDERS: ATTEND Surgery
PROC: 0DBL8ZX Excision of Transverse Colon, Via Natural or Artificial Opening Endoscopic, Diagnostic (ICD-10-PCS; principal; 2023-03-01 08:00)
DX: Z12.11 Encounter for screening for malignant neoplasm of colon (principal); D12.3 Benign neoplasm of transverse colon; K57.30 Diverticulosis of large intestine without perforation or abscess without bleeding; E11.9 Type 2 diabetes mellitus without complications; Z79.84 Long term (current) use of oral hypoglycemic drugs
CPT/HCPCS: 45380; 45385; J7120

== ENCOUNTER 2023-03-29 07:57 | Outpatient (CLI) | payer MEDICARE, OTHER ==
[2023-03-29 12:33] LABS: ESTIMATED AVERAGE GLUCOSE 151 mg/dL (70-100); HEMOGLOBIN A1c% 6.9 % (4.27-6.07)
[2023-03-29 12:47] LABS: THYROID STIMULATING HORMONE 1.48 uIU/mL (0.34-5.60)
[2023-03-29 12:51] LABS: ALBUMIN 4.2 g/dL (3.2-5.5); ALBUMIN/GLOBULIN RATIO 1.7 (1.0-2.2); ALKALINE PHOSPHATASE 47 IU/L (42-121); ALT ALANINE AMINOTRANSFERASE 13 IU/L (10-60); AST ASPARTATE AMINOTRANSFERASE 15 IU/L (10-42); BILIRUBIN,TOTAL 0.9 mg/dL (0.2-1.0); BUN - BLOOD UREA NITROGEN 12 mg/dL (6-20); CALCIUM 9.6 mg/dL (8.5-10.3); CARBON DIOXIDE - CO2 27 mmol/L (21-32); CHLORIDE 104 mmol/L (101-111); CHOL/HDL RATIO 3.5 (<5.0); CHOLESTEROL 176 mg/dL; GFR - MDRD 73 (>89); GLUCOSE 143 mg/dL (74-104); HDL CHOLESTEROL 50 mg/dL; LDL CHOLESTEROL,CALCULATED 106 mg/dL; LDL/HDL RATIO 2.1 (<3.6); POTASSIUM 4.4 mmol/L (3.5-4.5); SODIUM 138 mmol/L (135-145); TOTAL PROTEIN 6.7 g/dL (6.4-8.9); TRIGLYCERIDES 102 mg/dL (48-352); VLDL CHOLESTEROL 20 mg/dL
[2023-03-29 12:53] LABS: CREATININE,URINE 102.7 mg/dL; MICROALBUM/CREATININE RATIO,UR 70.1 ug/mg (<30.0); MICROALBUMIN,URINE 7.2 mg/dL
== END 2023-03-29 07:58 | disposition home or self-care (01) ==
LOC: LAB.N 07:57
PROVIDERS: ATTEND Internal Medicine
DX: E11.9 Type 2 diabetes mellitus without complications (principal); Z12.5 Encounter for screening for malignant neoplasm of prostate; E03.9 Hypothyroidism, unspecified; E78.5 Hyperlipidemia, unspecified
CPT/HCPCS: 36415; 80053; 80061; 82043; 82570; 83036; 84443; G0103; 83721; 84153

== ENCOUNTER 2023-04-30 08:11 | Outpatient (CLI) | payer MEDICARE, OTHER ==
[2023-04-30 12:01] LABS: CREATININE 1.5 mg/dL (0.6-1.3); POTASSIUM 4.8 mmol/L (3.5-4.5)
== END 2023-04-30 08:12 | disposition home or self-care (01) ==
LOC: LAB.N 08:11
PROVIDERS: ATTEND Internal Medicine
DX: I10 Essential (primary) hypertension (principal)
CPT/HCPCS: 36415; 80048

== ENCOUNTER 2023-07-10 08:01 | Outpatient (CLI) | payer MEDICARE, OTHER ==
[2023-07-10 11:52] LABS: BASOPHILS % (AUTO) 0.4 %; EOSINOPHILS # (AUTO) 0.1 10^3/uL (0.0-0.7); EOSINOPHILS % (AUTO) 1.7 %; HCT - HEMATOCRIT 50.6 % (42.0-52.0); HGB - HEMOGLOBIN 16.2 g/dL (14.0-18.0); LYMPHOCYTES # (AUTO) 1.2 10^3/uL (1.5-3.5); MEAN CORPUSCULAR HEMOGLOBIN 29.1 pg (27.0-31.0); MEAN PLATELET VOLUME 9.8 fL (7.4-11.4); MONOCYTES # (AUTO) 0.6 10^3/uL (0.0-1.0); MONOCYTES % (AUTO) 7.3 %; NEUTROPHILS # (AUTO) 6.3 10^3/uL (1.5-6.6); NEUTROPHILS % (AUTO) 75.9 %; PLT - PLATELET COUNT 246 10^3/uL (130-450); RED BLOOD COUNT 5.56 10^6/uL (4.70-6.10); RED CELL DISTRIBUTION WIDTH 13.4 % (12.0-15.0); WHITE BLOOD COUNT 8.2 x10^3/uL (4.8-10.8)
[2023-07-10 12:10] LABS: ALBUMIN 4.3 g/dL (3.2-5.5); ALBUMIN/GLOBULIN RATIO 1.4 (1.0-2.2); BILIRUBIN,TOTAL 0.8 mg/dL (0.2-1.0); CALCIUM 9.6 mg/dL (8.5-10.3); POTASSIUM 4.6 mmol/L (3.5-4.5); TOTAL PROTEIN 7.3 g/dL (6.4-8.9)
[2023-07-10 12:29] LABS: ESTIMATED AVERAGE GLUCOSE 171 mg/dL (70-100); HEMOGLOBIN A1c% 7.6 % (4.27-6.07)
== END 2023-07-10 08:02 | disposition home or self-care (01) ==
LOC: LAB.N 08:01
PROVIDERS: ATTEND Internal Medicine
DX: I10 Essential (primary) hypertension (principal); E11.9 Type 2 diabetes mellitus without complications
CPT/HCPCS: 36415; 80053; 83036; 85025

== ENCOUNTER 2023-08-05 13:16 | Outpatient (CLI) | payer MEDICARE, OTHER ==
--- NOTE | 2023-08-05 16:56 | SLEEP CARE CONSULTATION ---
Information from patient questionnaire entered by Melvin Godfrey. I have reviewed and concur with the information entered by Melvin Godfrey. This document represents the service I personally performed and the decisions made by me, Fareed Murray MD, [facility]. History of Present Illness Service Date and Time: 08/05/2023 1316 Previous diagnosis: Moderate, Obstructive Sleep Apnea-Hypopnea Syndrome AHI: 16.4 (in 2019) Reason for follow up: annual (LAST SEEN 07/2022) Equipment type: CPAP (RESMED) Equipment obtained from: [employer] Mask style: Nasal Prior sleep studies: Yes (20 years ago) Year and Where: 2018 - [facility] Sleep Type of Sleep Study: Polysomnography HPI additional information: Mr. Baig was diagnosed to have moderate obstructive sleep apnea-hypopnea syndrome and returns today for his annual follow up of CPAP therapy. The patient purchased the device from [employer] and was fitted with a nasal mask. He continues to use the device nightly and all through the night. The compliance report shows that he uses the ResMed AirSense 10 autoCPAP 364 nights out of the past 365 nights, averaging 8.9 hours a night. He complains of no particular problem with the device such as soreness on the face, dry nose, epistaxis, nasal congestion or headache. He does not use the humidifier. He thinks that the pressure of 12 - 16 cmH2O is comfortable (raised from 10 - 15 cmH2O last year for slightly elevated residual AHI). On the CPAP therapy he notices improvement in his sleep quality, and that he wakes up feeling fresher in the morning and more awake/alert during the day. His notices no snore at all. [place] Sleepiness Scale score is 8. The average residual AHI is 1.6 (was 4.1), most being central apneas; and average air leak is 5.7 L/minute. The 90th percentile pressure is 13.1 cmH2O. Sleep Study - Results Type of Sleep Study: Polysomnography Prior sleep studies: Yes (20 years ago) Year and Where: 2018 - [facility] Sleep CPAP Compliance Data - Data Reviewed with Patient Average duration of nightly device use: 8HRS 52MINS Compliance rate %: 99 (07/27/22-07/26/23) Current pressure setting (cmH2O): 10-15 Average residual AHI: 1.6 Subjective Initial [place] Sleepiness Scale score: 8 (in 2019) Current [place] Sleepiness Scale score: 8 (08/05/23) Allergies and Home Medications Drug allergies reviewed: Yes Home medication list reviewed: Yes Allergy and home medication list: Allergies codeine Adverse Reaction (Severe, Verified 08/01/23 17:02) confused shakey, increased heart rate Review of Systems Review of systems same as previous: Yes (NO CHANGE) Physical Exam Vital signs obtained and entered by: MELVIN Tobin MA Blood Pressure: 148/91 (RIGHT ARM) Cuff size: regular Heart Rate: 68 O2 Saturation: 95 Height: 5 ft 7 in Weight: 213 lb 6.4 oz Body Mass Index: 33.4 BMI Classification: Obese Impression and Plan IMPRESSION: 1. Obstructive Sleep Apnea-Hypopnea Syndrome, moderate (AHI was 16.4 in 2019) with the patient continuing to do well on nasal CPAP therapy. He has excellent compliance and significant clinical benefits. The current pressure appears ineffective and comfortable. Overall, he is very satisfied with treatment and plans to continue with it long-term. PLAN: 1. AutoCPAP left at 10 - 15 cm H2O. 2. Try to lose weight. 3. Return in one year for follow up or earlier if there is any problem with the treatment. He will be eligible for a new machine then. Follow up with Sleep Care in: 1 year Visit Type: In Office Time Spent with Patient (minutes): 15 Provider Statement: I spent 100% of the Face to Face Visit with the patient with greater than 50% spent counseling the patient and coordination of care.
[2023-08-05 16:57] VITALS: BP 148/91; O2SAT 95
== END 2023-08-05 13:17 | disposition home or self-care (01) ==
LOC: SC 13:16
PROVIDERS: ATTEND Internal Medicine Pulmonary Disease
DX: G47.33 Obstructive sleep apnea (adult) (pediatric) (principal); E66.9 Obesity, unspecified; Z68.33 Body mass index [BMI] 33.0-33.9, adult
CPT/HCPCS: 99212; G0463

== ENCOUNTER 2023-10-10 07:51 | Outpatient (CLI) | payer MEDICARE, OTHER ==
[2023-10-10 12:07] LABS: ESTIMATED AVERAGE GLUCOSE 180 mg/dL (70-100); HEMOGLOBIN A1c% 7.9 % (4.27-6.07)
[2023-10-10 12:21] LABS: ALBUMIN 4.4 g/dL (3.2-5.5); ALBUMIN/GLOBULIN RATIO 1.4 (1.0-2.2); ALKALINE PHOSPHATASE 57 IU/L (42-121); ALT ALANINE AMINOTRANSFERASE 12 IU/L (10-60); AST ASPARTATE AMINOTRANSFERASE 15 IU/L (10-42); BUN - BLOOD UREA NITROGEN 22 mg/dL (6-20); CALCIUM 10.3 mg/dL (8.5-10.3); CARBON DIOXIDE - CO2 27 mmol/L (21-32); CHLORIDE 101 mmol/L (101-111); CHOL/HDL RATIO 3.9 (<5.0); CHOLESTEROL 196 mg/dL; CREATININE 1.1 mg/dL (0.6-1.3); GFR - MDRD 65 (>89); GLUCOSE 120 mg/dL (74-104); HDL CHOLESTEROL 50 mg/dL; LDL CHOLESTEROL,CALCULATED 126 mg/dL; LDL/HDL RATIO 2.5 (<3.6); POTASSIUM 4.7 mmol/L (3.5-4.5); SODIUM 135 mmol/L (135-145); TOTAL PROTEIN 7.5 g/dL (6.4-8.9); TRIGLYCERIDES 101 mg/dL (48-352); VLDL CHOLESTEROL 20 mg/dL
== END 2023-10-10 07:52 | disposition home or self-care (01) ==
LOC: LAB.N 07:51
PROVIDERS: ATTEND Internal Medicine
DX: E11.9 Type 2 diabetes mellitus without complications (principal); E78.9 Disorder of lipoprotein metabolism, unspecified
CPT/HCPCS: 36415; 80053; 80061; 83036; 83721

== ENCOUNTER 2024-03-02 07:36 | Outpatient (CLI) | payer MEDICARE, OTHER ==
[2024-03-02 14:05] LABS: BUN - BLOOD UREA NITROGEN 27 mg/dL (6-20); CALCIUM 9.5 mg/dL (8.5-10.3); CARBON DIOXIDE - CO2 25 mmol/L (21-32); CHLORIDE 105 mmol/L (101-111); CHOL/HDL RATIO 3.8 (<5.0); CHOLESTEROL 173 mg/dL; CREATININE 1.3 mg/dL (0.6-1.3); GFR - MDRD 54 (>89); GLUCOSE 150 mg/dL (74-104); HDL CHOLESTEROL 46 mg/dL; LDL CHOLESTEROL,CALCULATED 89 mg/dL; LDL/HDL RATIO 1.9 (<3.6); POTASSIUM 4.6 mmol/L (3.5-4.5); SODIUM 136 mmol/L (135-145); TRIGLYCERIDES 189 mg/dL; VLDL CHOLESTEROL 38 mg/dL
[2024-03-02 23:38] LABS: ESTIMATED AVERAGE GLUCOSE 154 mg/dL (70-100)
== END 2024-03-02 07:37 | disposition home or self-care (01) ==
LOC: LAB.N 07:36
PROVIDERS: ATTEND Internal Medicine
DX: Z12.5 Encounter for screening for malignant neoplasm of prostate (principal); I10 Essential (primary) hypertension; E78.9 Disorder of lipoprotein metabolism, unspecified; E11.9 Type 2 diabetes mellitus without complications
CPT/HCPCS: 36415; 80048; 80061; 83036; G0103; 83721; 84153